=== PATIENT | male | born 1980 | race Caucasian/White ===

== ENCOUNTER 2021-01-08 12:05 | Emergency (ER) | payer BC, MEDICAID ==
[2021-01-08] MEDS ORDERED: Ketorolac 60 MG/2 ML SDV IM ONE (13:11)
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
== END 2021-01-08 14:00 | disposition home or self-care (01) ==
LOC: JP.ED 12:05
DX: R51.9 Headache, unspecified (principal); F07.81 Postconcussional syndrome; I10 Essential (primary) hypertension; Z79.899 Other long term (current) drug therapy
CPT/HCPCS: 96372; 99283; J1885

== ENCOUNTER 2021-09-15 17:16 | Inpatient (IN) | payer BC ==
[2021-09-15] MEDS ORDERED: Ondansetron 4 MG/2 ML SDV IVPUSH ONE (17:48)
[2021-09-15] MEDS ORDERED: Iopamidol 612 MG/ML 100 ML Bottle IV PRN (17:57)
[2021-09-15] MEDS ORDERED: Sodium Chloride 0.9% 1,000 ML IV SCH (18:00)
[2021-09-15] MEDS ORDERED: Sodium Chloride 0.9% 100 ML IV SCH (18:00)
[2021-09-15] MEDS ORDERED: HYDROmorphone 0.5 MG/0.5 ML Syringe IVPUSH ONE (18:07)
[2021-09-15 18:45] LABS: CORONAVIRUS COVID-19 NAA NEGATIVE (NEGATIVE)
[2021-09-15] MEDS ORDERED: fentaNYL 100 MCG/2 ML SDV IVPUSH PRN ×3 (19:31)
[2021-09-15] MEDS ORDERED: Promethazine 25 MG in Sodium Chloride 0.9% 50 ML IV PRN (19:31)
[2021-09-15] MEDS ORDERED: Ondansetron 4 MG/2 ML SDV IVPUSH PRN (19:31)
[2021-09-15] MEDS ORDERED: diphenhydrAMINE 50 MG/ML SDV IVPUSH PRN ×2 (19:31)
[2021-09-15] MEDS ORDERED: diphenhydrAMINE 25 MG Cap PO PRN (19:31)
[2021-09-15] MEDS ORDERED: Scopolamine 1.5 MG Transdermal Patch TRDERM PRN (19:31)
[2021-09-15] MEDS ORDERED: Promethazine 12.5 MG in Sodium Chloride 0.9% 50 ML IV PRN (19:31)
[2021-09-15] MEDS ORDERED: Morphine 4 MG/ML Syringe IVPUSH PRN (19:31)
[2021-09-15] MEDS: Piperacillin/Tazobactam 3.375 GM in Sodium Chloride 0.9% 50 ML IV SCH (21:10)
[2021-09-15] MEDS: Sodium Chloride 0.9% 1,000 ML IV SCH (21:10)
[2021-09-16] MEDS: Morphine 2 MG/ML SYRINGE IVPUSH PRN (00:48)
[2021-09-16] MEDS: Morphine 4 MG/ML Syringe IVPUSH PRN ×4 (02:19→07:49)
[2021-09-16] MEDS: Piperacillin/Tazobactam 3.375 GM in Sodium Chloride 0.9% 50 ML IV SCH (03:56)
[2021-09-16] MEDS: Sodium Chloride 0.9% 1,000 ML IV SCH (04:32)
[2021-09-16] MEDS ORDERED: Morphine 2 MG/ML SYRINGE IVPUSH PRN (07:24)
[2021-09-16] MEDS ORDERED: Bupivacaine 0.5%/EPINEPHrine 1:200,000 50 ML MDV ONE (07:24)
[2021-09-16] MEDS ORDERED: Ondansetron 4 MG/2 ML SDV ONE (07:44)
[2021-09-16] MEDS ORDERED: Succinylcholine 200 MG/10 ML MDV ONE (07:44)
[2021-09-16] MEDS ORDERED: Neostigmine Methylsulfate 1 MG/ML 5 ML Syringe ONE (07:44)
[2021-09-16] MEDS ORDERED: Glycopyrrolate 0.2 MG/ML 5 ML MDV ONE (07:44)
[2021-09-16] MEDS ORDERED: Rocuronium 50 MG/5 ML Vial ONE (07:44)
[2021-09-16] MEDS ORDERED: Propofol 200 MG/20 ML SDV ONE (07:44)
[2021-09-16] MEDS ORDERED: Dexamethasone 4 MG/ML SDV ONE (07:44)
[2021-09-16] MEDS ORDERED: fentaNYL 250 MCG/5 ML SDV ONE ×2 (07:44→08:58)
[2021-09-16] MEDS ORDERED: Lactated Ringers 1,000 ML ONE (08:22)
[2021-09-16] MEDS: Piperacillin/Tazobactam/Dext 3.375 GM in Premix Bag 1 BAG IV SCH ×3 (09:19→22:17)
[2021-09-16] MEDS ORDERED: Ketorolac 30 MG/ML SDV ONE (09:39)
[2021-09-16] MEDS: Acetaminophen/HYDROcodone 325-5 MG Tab PO PRN ×4 (11:19→23:45)
[2021-09-17] MEDS: Piperacillin/Tazobactam/Dext 3.375 GM in Premix Bag 1 BAG IV SCH ×2 (04:22→09:44)
[2021-09-17] MEDS: Acetaminophen/HYDROcodone 325-5 MG Tab PO PRN ×2 (07:30→12:30)
[2021-09-17] MEDS: Morphine 2 MG/ML SYRINGE IVPUSH PRN (09:43)
== END 2021-09-17 15:15 | disposition home or self-care (01) | DRG 225 ==
LOC: JP.ED 17:16 → JP.MS 19:16
PROVIDERS: ADMIT Surgery; ATTEND Surgery
PROC: 0DTJ4ZZ Resection of Appendix, Percutaneous Endoscopic Approach (ICD-10-PCS; principal; 2021-09-16)
DX: K35.33 Acute appendicitis with perforation, localized peritonitis, and gangrene, with abscess (principal); F41.9 Anxiety disorder, unspecified; F32.A Depression, unspecified; I10 Essential (primary) hypertension; Z20.822 Contact with and (suspected) exposure to COVID-19; Z98.49 Cataract extraction status, unspecified eye; Z79.899 Other long term (current) drug therapy
CPT/HCPCS: 0241U; 36415; 74177; 80048; 80053; 85025; 85027; 86140; 87070; 87077; 87186; 87205; 96374; 96375; 99284; 99285-25; A9270-GY; J0171; J0330; J1100; J1170; J1885; J2270; J2405; J2543; J2550; J2704; J2710; J2795; J3010; J3490; J7030; J7120; Q9967

== ENCOUNTER 2021-09-19 12:58 | Emergency (ER) | payer BC | END 2021-09-19 14:13 | disposition home or self-care (01) | LOC: JP.ED 12:58 | DX: L03.311 Cellulitis of abdominal wall (principal); I10 Essential (primary) hypertension; F41.9 Anxiety disorder, unspecified; F32.A Depression, unspecified; Z79.899 Other long term (current) drug therapy | CPT/HCPCS: 99283 ==